=== PATIENT | male | born 1990 | race Caucasian/White ===

== ENCOUNTER 2021-03-26 20:34 | Emergency (ER) | payer OTHER ==
[2021-03-26 20:43] VITALS: BP 142/78; PULSE 81; TEMP 98.1; BMI 26.9
== END 2021-03-26 21:01 | disposition home or self-care (01) ==
LOC: JERFT 20:34 → JER 20:34 → JERFT 21:01
PROC: 0HQGXZZ Repair Left Hand Skin, External Approach (ICD-10-PCS; principal; 2021-03-26)
DX: S61.213A Laceration without foreign body of left middle finger without damage to nail, initial encounter (principal); W26.8XXA Contact with other sharp object(s), not elsewhere classified, initial encounter
CPT/HCPCS: 99282-25